=== PATIENT | male | born 1995 | race Caucasian/White ===

== ENCOUNTER 2017-08-12 23:56 | Emergency (ER) | payer BC ==
[2017-08-13] MEDS ORDERED: diphenhydrAMINE 12.5 MG/5 ML UDCUP ONE ×2 (00:05→00:06)
[2017-08-13] MEDS ORDERED: Metoclopramide HCl 10 MG/2 ML VIAL ONE (00:05)
[2017-08-13] MEDS ORDERED: diphenhydrAMINE 50 MG/ML VIAL ONE (00:35)
== END 2017-08-13 01:13 | disposition home or self-care (01) ==
LOC: ERS 23:56
DX: R51 Headache (principal); F41.9 Anxiety disorder, unspecified
CPT/HCPCS: 96361; 96374; 96375; J1200; J2765

== ENCOUNTER 2019-08-12 20:44 | Emergency (ER) | payer BC, SELFPAY ==
[2019-08-12] MEDS ORDERED: Metoclopramide HCl 10 MG/2 ML VIAL ONE (21:05)
[2019-08-12] MEDS ORDERED: diphenhydrAMINE 50 MG/ML VIAL ONE (21:06)
[2019-08-12] MEDS ORDERED: Ketorolac Tromethamine 30 MG/ML VIAL ONE (21:06)
== END 2019-08-12 22:30 | disposition home or self-care (01) ==
LOC: ERS 20:44
DX: R51 Headache (principal)
CPT/HCPCS: 96365; 96375; J1200; J1885; J2765